=== PATIENT | male | born 1990 | race Caucasian/White ===

== ENCOUNTER 2019-03-14 16:35 | Emergency (ER) | payer MEDICAID ==
[~2019-03-14] VITALS: Ht 172.7 cm; Wt 68.5 kg
[2019-03-14] MEDS ORDERED: TETanus/Pertussis (Acell)/Diphther VAC/PF (Tdap-Adult) 0.5ml syringe IMVAC ONE (16:50)
[2019-03-14] MEDS ORDERED: CEPH-572 PO (17:31)
[2019-03-14 17:40] VITALS: BP 120/85
== END 2019-03-14 17:45 | disposition home or self-care (01) ==
LOC: ER 16:36
DX: S61.411A Laceration without foreign body of right hand, initial encounter (principal); W31.2XXA Contact with powered woodworking and forming machines, initial encounter; Y93.89 Activity, other specified; Y92.89 Other specified places as the place of occurrence of the external cause; Y99.9 Unspecified external cause status
CPT/HCPCS: 12002; 73120; 90471; 99283

== ENCOUNTER 2019-04-08 08:46 | Day surgery (SDC) | payer MEDICAID ==
[~2019-04-08] VITALS: Ht 170.2 cm; Wt 74.3 kg
[2019-04-08] VITALS (11 sets, daily range): BP systolic 120–149; BP diastolic 71–88
[~2019-04-08 08:46] MED LIST: BUPIVAcaine/PF 2.5mg/ml (0.25%) 10ml vial ONE; NO HOME MEDS; cefazolin/dext.iso 2gm/100ml 100 ML IV ONE; famotidine 10mg tablet PO ONE; ringers solution, lacted 1,000 ML IV SCH
[2019-04-08] MEDS ORDERED: LIDOcaine 0.5% (5mg/ml) 50ml vial ONE (11:35)
[2019-04-08] MEDS ORDERED: MIDAZolam 1mg/ml 10ml vial ONE (11:37)
[2019-04-08] MEDS ORDERED: fentaNYL/PF 50MCG/1 ML 2ML syringe ONE (11:37)
[2019-04-08] MEDS ORDERED: propofol inj 20 ML IV ONE (11:46)
[2019-04-08] MEDS ORDERED: ringers solution, lacted 1,000 ML IV SCH (11:56)
[2019-04-08] MEDS ORDERED: labetalol 20mg/4ml (5mg/ml) syringe IV PRN (12:00)
[2019-04-08] MEDS ORDERED: meperidine/PF 25mg/ml syringe IV PRN ×2 (12:00)
[2019-04-08] MEDS ORDERED: ondansetron/PF 4mg/2ml inj IV PRN (12:00)
[2019-04-08] MEDS ORDERED: hydrALAZINE 20mg/ml inj. IV PRN (12:00)
[2019-04-08] MEDS ORDERED: morphine 4 MG/ML inj SYRINge IV PRN ×2 (12:00)
--- NOTE | 2019-04-08 12:24 | NUR ---
Received from OR via [facility], accompanied by Anesthesiologist DR ADAMES and report given by Anesthesiologist. PT DROWSY, DENIES PAIN, RIGHT HAND/WRIST/INDEX FINGER IN CAST, FINGERS PWD, CENTRAL OFFICE TROUBLE SHOOTER 1-2 SECONDS. Addendum: 04/08/19 at 1456 by Lexi Perez RN Amended: Links added.
--- NOTE | 2019-04-08 14:14 | NUR ---
D/C INSTRUCTIONS GIVEN AND GONE OVER W/PT WHO VERBALIZED UNDERSTANDING, PT D/CD TO HOME VIA W/C TO PRIVATE VEHICLE W/O INCIDENT. Addendum: 04/08/19 at 1502 by Lexi Perez RN Amended: Links added.
== END 2019-04-08 14:14 | disposition home or self-care (01) ==
LOC: PAS 08:46
PROVIDERS: ATTEND Orthopaedic Surgery Hand Surgery
DX: T81.49XA Infection following a procedure, other surgical site, initial encounter (principal); Z87.891 Personal history of nicotine dependence; Z72.89 Other problems related to lifestyle; Y83.8 Other surgical procedures as the cause of abnormal reaction of the patient, or of later complication, without mention of misadventure at the time of the procedure; Y92.89 Other specified places as the place of occurrence of the external cause
CPT/HCPCS: 26418; J2001; J2250; J2704; J3010; J3490; A4215; A7000; J7120